=== PATIENT | female | born 1935 | race Caucasian/White ===

== ENCOUNTER 2020-11-09 05:32 | Inpatient (IN) | payer MEDICARE, MEDICAID ==
[~2020-11-09] VITALS: Ht 139.7 cm; Wt 58.3 kg
[2020-11-09] MEDS ORDERED: SODIUM CHLORIDE 0.9% 1,000 ML IV ONE (05:45)
[2020-11-09 06:05] LABS: HEMATOCRIT. 26.9 % (36.0-48.0); HEMOGLOBIN. 8.6 g/dL (12.0-16.0); MEAN CORPUSCULAR HEMOGLOBIN 21.8 pg (28.0-32.0); MEAN CORPUSCULAR VOLUME 68.1 fL (81.0-99.0); MEAN PLATELET VOLUME 6.6 fl (7.4-10.4); PLATELET 905 x1000/uL (130-400); RED BLOOD CELL COUNT 3.95 mill/uL (4.2-5.4); RED CELL DISTRIBUTION WIDTH 18.6 % (11.6-14.6)
[2020-11-09 06:13] LABS: CHLORIDE 93 mEq/L (98-107)
[2020-11-09 06:14] LABS: PROTHROMBIN TIME 11.1 sec (9.6-11.0)
[2020-11-09] MEDS ORDERED: SODIUM CHLORIDE 0.9% 1000ML BAG (SEPSIS BOLUS) IV ONE (06:30)
[2020-11-09] MEDS ORDERED: PIPERACILLIN/TAZ 3.375G PREMIX 50 ML IV ONE (06:30)
[2020-11-09] MEDS ORDERED: IOHEXOL-300 100 ML BOTTLE ONE (06:52)
[2020-11-09] MEDS ORDERED: LEVOFLOXACIN 500MG PREMIX 100 ML IV ONE (07:00)
[2020-11-09 07:15] LABS: PLATELET ESTIMATE MARKEDLY INCREASED
[2020-11-09 08:08] LABS: CLARITY URINE CLEAR (CLEAR); COLOR URINE YELLOW (YELLOW); KETONES URINE NEGATIVE (NEGATIVE); LEUKOCYTE ESTERASE URINE NEGATIVE (NEGATIVE); NITRITE URINE NEGATIVE (NEGATIVE); OCCULT BLOOD URINE NEGATIVE (NEGATIVE); PH URINE 5.5 (4.5-8.0); PROTEIN URINE NEGATIVE (NEGATIVE); SPECIFIC GRAVITY URINE 1.033 (1.005-1.030); UROBILINOGEN URINE 0.2 E.U./dL (0.2-1.0)
[2020-11-09] MEDS ORDERED: ONDANSETRON HCL 4MG/2ML INJ IV ONE (08:30)
[2020-11-09 10:00] VITALS: BP 151/63
[2020-11-09] MEDS ORDERED: MORPHINE SULFATE 2 MG/ML CPJ (NOT FOR IM USE) IV PRN (10:30)
[2020-11-09 11:00] VITALS: BP 151/63
[2020-11-09] MEDS: SODIUM CHLORIDE 0.9% 1,000 ML IV SCH (11:27)
[2020-11-09 12:00] VITALS: BP 141/63
[2020-11-09] MEDS ORDERED: PIPERACILLIN/TAZOBACTAM 3.375 G in DEXT 5% WATER 100 ML IV SCH (13:00)
[2020-11-09] MEDS ORDERED: HYDR-4346 MT (15:54)
[2020-11-09] MEDS ORDERED: AMLO5TAB88 MT (15:54)
[2020-11-09] MEDS ORDERED: NAPR500T7 PO (15:54)
[2020-11-09] MEDS ORDERED: CEPH500C2 MT (15:54)
[2020-11-09 16:00] VITALS: BP 142/72
[2020-11-09] MEDS ORDERED: PIPERACILLIN/TAZOBACTAM 2.25 G in DEXTROSE 5% WATER 50 ML IV SCH (16:00)
[2020-11-09] MEDS: PIPERACILLIN/TAZOBACTAM 2.25 G in DEXTROSE 5% WATER 50 ML IV SCH (18:12)
[2020-11-09 20:00] VITALS: BP 142/57
[2020-11-09] MEDS ORDERED: PNEUMOCOCCAL 23-VAL P-SAC VAC 0.5 ML IM ONE (21:00)
[2020-11-09] MEDS: HYDROCODONE/ACETAMINOPHEN 5/325MG TABLET PO PRN (21:25)
[2020-11-10] VITALS: BP 139/80
[2020-11-10] MEDS: PIPERACILLIN/TAZOBACTAM 2.25 G in DEXTROSE 5% WATER 50 ML IV SCH ×4 (00:18→17:23)
[2020-11-10] MEDS: SODIUM CHLORIDE 0.9% 1,000 ML IV SCH ×2 (00:21→13:34)
[2020-11-10 04:00] VITALS: BP 148/52
[2020-11-10] MEDS: HYDROCODONE/ACETAMINOPHEN 5/325MG TABLET PO PRN ×2 (06:12→16:30)
[2020-11-10 08:00] VITALS: BP 130/52
[2020-11-10 08:25] LABS: CHLORIDE 98 mEq/L (98-107)
[2020-11-10 08:30] LABS: HEMATOCRIT. 23.1 % (36.0-48.0); HEMOGLOBIN. 7.4 g/dL (12.0-16.0); MEAN CORPUSCULAR HEMOGLOBIN 21.9 pg (28.0-32.0); MEAN CORPUSCULAR VOLUME 68.6 fL (81.0-99.0); MEAN PLATELET VOLUME 6.8 fl (7.4-10.4); PLATELET 784 x1000/uL (130-400); RED BLOOD CELL COUNT 3.36 mill/uL (4.2-5.4)
[2020-11-10 12:00] VITALS: BP 150/63
[2020-11-10] MEDS: DOCUSATE SODIUM SUGAR FREE 100MG/10ML UDC PO SCH (12:30)
[2020-11-10] MEDS ORDERED: BISACODYL 10MG SUPP PR NR (14:30)
[2020-11-10 16:00] VITALS: BP 165/65
[2020-11-10 20:00] VITALS: BP 144/64
[2020-11-10 23:18] LABS: PLATELET ESTIMATE INCREASED
[2020-11-11] VITALS (7 sets, daily range): BP systolic 121–162; BP diastolic 63–73
[2020-11-11] MEDS: PIPERACILLIN/TAZOBACTAM 2.25 G in DEXTROSE 5% WATER 50 ML IV SCH ×4 (00:01→17:16)
[2020-11-11] MEDS: HYDROCODONE/ACETAMINOPHEN 5/325MG TABLET PO PRN ×2 (00:43→12:03)
[2020-11-11] MEDS: SODIUM CHLORIDE 0.9% 1,000 ML IV SCH ×2 (02:30→15:06)
[2020-11-11] MEDS ORDERED: BISACODYL 10MG SUPP PR PRN (06:00)
[2020-11-11 06:04] LABS: BASOPHILS % 0.3 % (0.0-2.0); EOSINOPHILS % 0.5 % (0.0-5.0); HEMATOCRIT. 23.1 % (36.0-48.0); HEMOGLOBIN. 7.4 g/dL (12.0-16.0); LYMPHOCYTES % 8.4 % (20.0-50.0); MEAN CORPUSCULAR HEMOGLOBIN 22.2 pg (28.0-32.0); MEAN CORPUSCULAR VOLUME 69.1 fL (81.0-99.0); MEAN PLATELET VOLUME 6.6 fl (7.4-10.4); NEUTROPHILS % 81.8 % (40.0-76.0); PLATELET 829 x1000/uL (130-400); RED BLOOD CELL COUNT 3.34 mill/uL (4.2-5.4); RED CELL DISTRIBUTION WIDTH 18.9 % (11.6-14.6)
[2020-11-11 06:14] LABS: CHLORIDE 96 mEq/L (98-107)
[2020-11-11] MEDS: DOCUSATE SODIUM SUGAR FREE 100MG/10ML UDC PO SCH (08:38)
[2020-11-12] VITALS: BP 164/73
[2020-11-12] MEDS: PIPERACILLIN/TAZOBACTAM 2.25 G in DEXTROSE 5% WATER 50 ML IV SCH ×4 (00:18→18:26)
[2020-11-12] MEDS: ACETAMINOPHEN 325MG TABLET PO PRN (01:32)
[2020-11-12] MEDS ORDERED: VANCOMYCIN 1250MG in DEXTROSE 5% WATER 250ML IV SCH (03:00)
[2020-11-12 04:00] VITALS: BP 125/52
[2020-11-12] MEDS: HYDROCODONE/ACETAMINOPHEN 5/325MG TABLET PO PRN ×3 (05:13→20:29)
[2020-11-12] MEDS: SODIUM CHLORIDE 0.9% 1,000 ML IV SCH ×2 (05:58→18:29)
[2020-11-12 08:00] VITALS: BP 134/62
[2020-11-12 08:22] LABS: BASOPHILS % 0.2 % (0.0-2.0); EOSINOPHILS % 0.5 % (0.0-5.0); HEMATOCRIT. 22.7 % (36.0-48.0); HEMOGLOBIN. 7.4 g/dL (12.0-16.0); LYMPHOCYTES % 7.4 % (20.0-50.0); MEAN CORPUSCULAR HEMOGLOBIN 22.5 pg (28.0-32.0); MEAN CORPUSCULAR VOLUME 69.3 fL (81.0-99.0); MEAN PLATELET VOLUME 6.4 fl (7.4-10.4); MONOCYTES % 8.9 % (2.0-8.0); PLATELET 796 x1000/uL (130-400); RED BLOOD CELL COUNT 3.28 mill/uL (4.2-5.4); RED CELL DISTRIBUTION WIDTH 19.2 % (11.6-14.6)
[2020-11-12 08:36] LABS: CHLORIDE 98 mEq/L (98-107)
[2020-11-12] MEDS: DOCUSATE SODIUM SUGAR FREE 100MG/10ML UDC PO SCH (10:14)
[2020-11-12] MEDS: ONDANSETRON HCL 4MG/2ML INJ IV PRN (10:37)
[2020-11-12 12:41] VITALS: BP 137/52
[2020-11-12 16:00] VITALS: BP 135/90
[2020-11-12 20:00] VITALS: BP 130/54
[2020-11-13] VITALS: BP 129/70
[2020-11-13] MEDS: PIPERACILLIN/TAZOBACTAM 2.25 G in DEXTROSE 5% WATER 50 ML IV SCH ×3 (02:09→12:56)
[2020-11-13] MEDS ORDERED: VANCOMYCIN 1 G PREMIX 200 ML IV SCH (03:00)
[2020-11-13 04:00] VITALS: BP 129/52
[2020-11-13] MEDS ORDERED: VANCOMYCIN 750 MG PREMIX 150 ML IV SCH (06:00)
[2020-11-13] MEDS: SODIUM CHLORIDE 0.9% 1,000 ML IV SCH (06:25)
[2020-11-13 08:00] VITALS: BP 158/60
[2020-11-13] MEDS: DOCUSATE SODIUM SUGAR FREE 100MG/10ML UDC PO SCH (08:24)
[2020-11-13] MEDS: ONDANSETRON HCL 4MG/2ML INJ IV PRN (08:24)
[2020-11-13] MEDS: HYDROCODONE/ACETAMINOPHEN 5/325MG TABLET PO PRN (08:25)
[2020-11-13] MEDS: ACETAMINOPHEN 325MG TABLET PO PRN (10:55)
[2020-11-13 12:00] VITALS: BP 146/58
[2020-11-13 16:00] VITALS: BP 118/52
[2020-11-13 18:41] VITALS: BP 147/60
== END 2020-11-13 19:00 | disposition hospice, home (50) | DRG 871 ==
LOC: ER 05:32 → 8WST 08:45 → ENRESERV 09:41
PROVIDERS: ADMIT Internal Medicine; ATTEND Internal Medicine
DX: A41.9 Sepsis, unspecified organism (principal); E43 Unspecified severe protein-calorie malnutrition; J18.9 Pneumonia, unspecified organism; E87.1 Hypo-osmolality and hyponatremia; K59.39 Other megacolon; C79.89 Secondary malignant neoplasm of other specified sites; I10 Essential (primary) hypertension; D50.9 Iron deficiency anemia, unspecified; Z68.29 Body mass index [BMI] 29.0-29.9, adult; Z87.440 Personal history of urinary (tract) infections; Z82.49 Family history of ischemic heart disease and other diseases of the circulatory system; Z20.822 Contact with and (suspected) exposure to COVID-19
CPT/HCPCS: 36415; 71045; 74177; 76705; 80048; 80053; 81003; 82105; 83605; 84145; 84484; 85025; 86304; 87426; 93005; 99285; C1893; J1956; J2270; J2405; J2543; J3370; J7030; J7060; Q9967